=== PATIENT | female | born 2005 | race Caucasian/White ===

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

== ENCOUNTER 2024-04-06 14:01 | Emergency (ER) | payer BC, SELFPAY ==
[2024-04-06 14:03] VITALS: BP 127/83; PULSE 96; RESP 18; TEMP 37.1; O2SAT 96; BMI 17.4
--- NOTE | 2024-04-06 14:19 | ED_ITS ---
HPI - General Adult General Chief complaint: Back Injury/Pain Stated complaint: Chest pain, pneumonia Time Seen by Provider: 04/06/24 14:01 History of Present Illness HPI narrative: Patient presents to the emergency department complaining of right side and back pain. Patient states she was diagnosed with a pneumonia on 03/22. Patient since then has had a continuous cough since. Anti biotic course was completed about 1 week ago. Patient states pain improves when she eats or drinks water . Pain gets worse with bending. 18-year-old woman presenting to the emergency department with concern of chest and back pain recently treated for community-acquired pneumonia 2 weeks ago treated with amoxicillin and azithromycin for presumed infection in the right middle lobe. She was also given Symbicort equivalent inhaler. Did not olive picker Flonase. Denies a history of reactive airway or asthma. Admittedly had improved with less cough though still lingering and then this morning noted herself to be a ford sort her legs. Had inkling of some chest discomfort but went to take a shower and suddenly hit by is severely intense pain in her upper right back that seem to come into her right side/chest as well. He was barely able to walk in apparent pain. Pain continues to be pleuritic. It was worse when she was bending over. Leg pain/discomfort has resolved. She is not currently short of breath. No fever. Not clearly with left-sided chest pain. Related Data Home Medications ?Medication ?Instructions ?Recorded ?Confirmed levonorgestrel 17.5 mcg/24 hr (up intrauterine 12/08/22 12/12/22 to 5 yrs) 19.5mg intrauterine device (Kyleena) escitalopram oxalate 10 mg tablet 10 mg PO DAILY 04/06/24 04/06/24 Previous Rx's ?Medication ?Instructions ?Recorded Symbicort 160 mcg-4.5 2 puff inhalation BID #10.2 grams 03/22/24 mcg/actuation HFA aerosol inhaler (budesonide-formoterol) Allergies Allergy/AdvReac Type Severity Reaction Status Date / Time No Known Drug Allergies Allergy Verified 04/06/24 14:11 Review of Systems Status of ROS: Reports: 6 or more systems reviewed and unremarkable except as noted in History and below FOR[facility]LY [facility] PFS Surgical History History of bladder surgery ?Z98.890 - Other specified postprocedural states (ICD-10) Family History Maternal Grandfather Thyroid cancer Social History What is your current living situation?: I presently have a place to live Problems where you live: no known problems In the past 12 months, utilities in danger of being shut off: no In past 12 months, lack of transportation kept you from medical appts, meetings, work, or getting things needed for daily living: no How hard is it for you to pay for the very basics like food, housing, medical care, and heating: not very hard In the past 12 mos, have been you worried that your food would run out before you had money to buy more?: never true In the past 12 mos, the food you bought just didn't last and you didn't have money to buy more?: never true Smoking Status: Never smoker Do you use any of these nicotine containing products: None Second hand tobacco smoke exposure: No How often do you have a drink containing alcohol: never AUDIT-C Alcohol total score: 0 Non-prescribed substance use: denies use How often does anyone, including family, friends and others, physically hurt you : never How often does anyone, including family, friends and others, insult or talk down to you: rarely How often does anyone, including family, friends and others, threaten you with harm: never How often does anyone, including family, friends and others, scream or curse at you: never service: No Health Related Social Needs: Other personal risk factors, not elsewhere classified (Z91.89) Exam Narrative: Exam Narrative: Pleasant. NAD. Breathing easily. Lungs sound to be clear. There is no supraclavicular crepitus. Neck is supple without lymphadenopathy. Heart in elevated rate regular rhythm. Lower extremities are without new pain - shows a scar in the upper left inner leg consistent with prior surgery which shows as well discomfort. Is well-perfused peripherally without edema. Negative Homans. She does have some reproducible discomfort to palpation in the right upper middle back including the periscapular musculature. Const: Vital Signs, click to edit/add: Vital Signs - 24 hr 04/06/24 14:03 Temperature 98.7 F Pulse Rate [Right Pulse Oximeter] 96 Respiratory Rate 18 Blood Pressure [Ri ght Upper Arm] 127/83 Pulse Oximetry 96 Oxygen Delivery Me thod Room Air Documenting provider has reviewed patient's vital signs: yes Course Vital Signs Vital signs: Initial Vital Signs Temperature 98.7 F 04/06/24 14:03 Temperature Source Temporal Artery Scan 04/06/24 14:03 Pulse Rate 96 04/06/24 14:03 Pulse Rhythm Regular 04/06/24 14:03 Pulse Strength 3+ Normal 04/06/24 14:03 Respiratory Rate 18 04/06/24 14:03 Blood Pressure 127/83 04/06/24 14:03 Blood Pressure Mean 97 04/06/24 14:03 Blood Pressure Position Sitting 04/06/24 14:03 Pulse Oximetry 96 04/06/24 14:03 Oxygen Delivery Method Room Air 04/06/24 14:03 Vital Signs Temperature 98.7 F 04/06/24 14:03 Pulse Rate 96 04/06/24 14:03 Respiratory Rate 18 04/06/24 14:03 Blood Pressure 127/83 04/06/24 14:03 Pulse Oximetry 96 04/06/24 14:03 Oxygen Delivery Method Room Air 04/06/24 14:03 Temperature 98.7 F 04/06/24 14:03 Pulse Rate 96 04/06/24 14:03 Respiratory Rate 18 04/06/24 14:03 Blood Pressure 127/83 04/06/24 14:03 Pulse Oximetry 97 04/06/24 15:48 Oxygen Delivery Method Room Air 04/06/24 15:48 Medical Decision Making MDM Narrative Medical decision making narrative: She describes this as ?muscle spasm? at that certainly may be what is occurred for unclear reason. Concern is also expressed of potential pleurisy. I do think this is in the differential. Also would be pneumothorax or pulmonary embolus though I think the latter less likely. She does however vape pretty regularly. I suppose that would increase risk of pneumothorax. Has cut back a bit. Without imaging done prior perhaps it would be a good idea to look at this point. Does not feel she needs anything for pain at this point Chest x-ray independently reviewed by me does not appear to show any infiltrate. No pneumothorax. Radiology over-read below Indication: Recent increase in right upper chest and back pain Comparison: None available. Technique: PA and lateral views of the chest Findings: There is good depth of inspiration without evidence of dense consolidation, effusion or pneumothorax. The cardiomediastinal silhouette is within normal limits. The bony thorax is grossly intact. Impression: No acute cardiopulmonary abnormality. Appears to have some residual inflammatory changes. With wheeze that was originally described as well I think would benefit from a course of prednisone for I suppose some sort of bronchitis for lack of better terminology. This might also help with chest wall pain. See patient discharge plan for further discussion If you are trying not to take ibuprofen or naproxen, alternative would be acetaminophen up to 850 mg per dose. Prednisone though can be a potent anti-inflammatory without the same concerns of ibuprofen for example. Will be prescribing 5 day course from [facility]. Be seen for increasing and persistent shortness of breath, marked increase in persistent chest pain. Some stretches of your upper back might be indicated as well as it seemed like you might have been having some spasming of the muscles. Here is a handout here for you that might be beneficial to do daily over the next week or 2 and maybe beyond. Medical Records Medical records reviewed: Yes I reviewed the patient's medical records Discharge Plan Discharge Clinical Impression: Chest wall pain, Pleuritic chest pain Patient Disposition: Home w/ Parent or Adult Condition: Improved Additional Instructions: If you are trying not to take ibuprofen or naproxen, alternative would be acetaminophen up to 850 mg per dose. Prednisone though can be a potent anti-inflammatory without the same concerns of ibuprofen for example. Will be prescribing 5 day course from [facility]. Be seen for increasing and persistent shortness of breath, marked increase in persistent chest pain. Some stretches of your upper back might be indicated as well as it seemed like you might have been having some spasming of the muscles. Here is a handout here for you that might be beneficial to do daily over the next week or 2 and maybe beyond. Prescriptions: No Action budesonide-formoterol [Symbicort] 160-4.5 mcg/actuation HFA aerosol inhaler 2 puff inhalation BID Qty: 10.2 0RF Rx Instructions: OK to use every four hours between twice daily administration for management of symptoms. Be sure to swish mouth with water and spit following each administration to prevent thrush. Kyleena 17.5 mcg/24 hrs (5 yrs) 19.5 mg intrauterine device intrauterine escitalopram oxalate 10 mg tablet 10 mg PO DAILY Follow Up/Referrals: Tri Rosenthal MD [Primary Care Provider] - Stand Alone Forms: [facility] Info Instructions
--- NOTE | 2024-04-06 14:44 | CRLHL7_ITS ---
For Patients: As a result of the Cures Act, medical imaging exams and procedure reports are released immediately into your electronic medical record. You may view this report before your referring provider. If you have questions, please contact your health care provider. Indication: Recent increase in right upper chest and back pain Comparison: None available. Technique: PA and lateral views of the chest Findings: There is good depth of inspiration without evidence of dense consolidation, effusion or pneumothorax. The cardiomediastinal silhouette is within normal limits. The bony thorax is grossly intact. Impression: No acute cardiopulmonary abnormality. Dictated by Jamel Sánchez MD @ 04/06/2024 3:16:04 PM (Electronically Signed)
[2024-04-06 15:48] VITALS: O2SAT 97
== END 2024-04-06 15:50 | disposition home or self-care (01) ==
PROVIDERS: Emergency Provider Family Medicine; PCP Family Medicine
DX: R07.9 Chest pain, unspecified (principal)
CPT/HCPCS: 71046; 99284